=== PATIENT | female | born 1985 | race Caucasian/White ===

== ENCOUNTER 2017-02-07 19:38 | Emergency (ER) | payer OTHER ==
[2017-02-07] MEDS ORDERED: Aluminum Hydroxide/Magnesium Hydroxide Susp (30 mL) PO STA (20:40)
[2017-02-07] MEDS ORDERED: Aluminum Hydroxide/Magnesium Hydroxide Susp (30 mL) ONE (20:48)
--- NOTE | 2017-02-07 20:49 | C.PDOC ---
History Of Present Illness 31 y/o female presents to the ED for evaluation of a sore throat which began last night. Patient states her pain is worse with swallowing and is associated with a dry cough and a subjective, unmeasured fever. Patient is also around 37 weeks and denies any issues related to the such as abdominal pain, contractions, or vaginal bleeding. Patient also denies any other past medical history. Time Seen by Provider: 02/07/17 20:09 Chief Complaint (Nursing): ENT Problem History Per: Patient History/Exam Limitations: None Onset/Duration Of Symptoms: Hrs Current Symptoms Are (Timing): Still Present Quality (Mouth/Throat): Other (+sore throat) Past Medical History Reviewed: Historical Data, Nursing Documentation, Vital Signs Vital Signs: Last Vital Signs Temp 98.1 F 02/07/17 19:46 Pulse 66 02/07/17 19:46 Resp 16 02/07/17 19:46 BP 114/77 02/07/17 19:46 Pulse Ox 98 02/07/17 20:54 - Medical History PMH: No Chronic Diseases Surgical History: No Surg Hx Family History: States: Unknown Family Hx - Social History Hx Alcohol Use: No Hx Substance Use: No Review Of Systems Constitutional: Positive for: Fever (subjective) ENT: Positive for: Throat Pain Cardiovascular: Negative for: Chest Pain Respiratory: Positive for: Cough. Negative for: Sputum Gastrointestinal: Negative for: Nausea, Vomiting, Abdominal Pain, Diarrhea Genitourinary: Negative for: Vaginal Bleeding Neurological: Negative for: Weakness, Numbness Physical Exam - Physical Exam Appears: Non-toxic, No Acute Distress Skin: Normal Color, Warm, Dry Head: Atraumatic, Normacephalic Eye(s): bilateral: Normal Inspection Ear(s): Bilateral: Normal Nose: Normal, No Discharge Oral Mucosa: Moist Throat: Normal, No Erythema, No Exudate, Other (uvula at midline, no swelling ) Neck: Normal ROM, Supple Chest: Symmetrical, No Deformity, No Tenderness Cardiovascular: Rhythm Regular, No Murmur Respiratory: Normal Breath Sounds, No Rales, No Rhonchi, No Wheezing Gastrointestinal/Abdominal: Soft, No Tenderness, No Guarding, No Rebound, Other (+gravid ) Back: Normal Inspection Extremity: Normal ROM, Capillary Refill (less than 2 seconds ) Neurological/Psych: Oriented x3, Normal Speech, Normal Cognition Gait: Steady ED Course And Treatment O2 Sat by Pulse Oximetry: 98 (on RA) Pulse Ox Interpretation: Normal Progress Note: Rapid Strep test ordered and reviewed. Patient received Lidocaine 2% Viscous PO and Maalox PO. Medical Decision Making Medical Decision Making: viral pharyngitis vs gerd pt appears well no distress, vss rec close f/u w OB and pcp, return if worse Disposition - Disposition Disposition: HOME/ ROUTINE Disposition Time: 21:57 Condition: GOOD Forms: [facility] (Scottish) - Clinical Impression Clinical Impression: Sore throat - Scribe Statement The provider has reviewed the documentation as recorded by the Scribe (Giovanna Salter) Provider Attestation: All medical record entries made by the Scribe were at my direction and personally dictated by me. I have reviewed the chart and agree that the record accurately reflects my personal performance of the history, physical exam, medical decision making, and the department course for this patient. I have also personally directed, reviewed, and agree with the discharge instructions and disposition.
[2017-02-07 22:13] VITALS: BP 107/72; PULSE 65; RESP 20; TEMP 98.5; O2SAT 97
== END 2017-02-07 22:09 | disposition home or self-care (01) ==
LOC: C.ER 19:38
DX: J02.9 Acute pharyngitis, unspecified (principal)

== ENCOUNTER 2017-02-10 18:35 | Inpatient (IN) | payer OTHER ==
--- NOTE | 2017-02-10 19:44 | OBHP ---
Datetime: 02/10/2017 19:39 IP Adm Impression: Term, intrauterine ; Active labor IP Admit Plan: Admit to unit; Initiate labor protocol Admit Comment, IP Provider: chief complaint-contractions HPI 31 y/o at 39 weeksa nd 2 days with c/o contarctions.Denies vaginal bleeding or loss of fl uid.Patient denies nausea, vomiting, headache, chest pain, shortness of breath, numbness or tingling in hands andfeet course uncomplicated PMH denies PSH denies OBGYN HX Social hx denies tobacco,alcohol or illicit drug use Exam see exam section A/P 31 y/o at 39.2 wga in labor.GBS unknowns -admit -see orders Dr Salter aware Pelvic Type - PN: Adequate Extremities - PN: Normal Abdomen - PN: Normal Back - PN: Normal Lungs - PN: Normal Heart - PN: Normal Neurologic - PN: Normal General - PN: Normal Weight - Estimated: 3200 Presentation-Admit: Vertex Contraction Comments Provider: every 5 min Gestation - Est Wks by US: 39.2 IP Hx Assessment: The History has been Reviewed and is Current EGA AdmitDate IP: 39.2 Vital Signs Provider: Reviewed; Within Normal Limits IP Chief Complaint: Uterine contractions FHR Category Provider Fetus A: Category I Dilatation, Provider: 3 Effacement, Provider: 70 Station, Provider: -2 Genitourinary Exam: Normal DTRs - PN: Normal
[2017-02-10 19:52] VITALS: BMI 29.3
[2017-02-10] MEDS ORDERED: Penicillin G 5 Million Unit Vial IVPB ONE ×2 (19:55→20:28)
[2017-02-10] MEDS ORDERED: Lactated Ringer's 1,000 ML IV SCH (20:00)
[2017-02-10] MEDS ORDERED: Oxytocin 30 UNIT 30 UNITS/500 ML BAG IV PRN (20:08)
[2017-02-10 20:37] LABS: BASO # 0.1 K/uL (0.0-0.2); BASO % 0.7 % (0.0-2.0); EOS # 0.1 K/uL (0.0-0.7); EOS % 1.1 % (0.0-4.0); HEMATOCRIT 33.4 % (34.0-47.0); LYMPH # 1.9 K/uL (1.0-4.3); LYMPH % 18.4 % (20.0-40.0); MEAN CELL VOLUME 75.9 fL (81.0-99.0); MEAN CORPUSCULAR HGB CONC 32.9 g/dL (33.0-37.0); MEAN PLATELET VOLUME 8.6 fL (7.2-11.7); MONO # 0.9 K/uL (0.0-0.8); MONO % 8.9 % (0.0-10.0); NRBC % 0.1 % (0.0-2.0); RED CELL DISTRIBUTION WIDTH 15.8 % (11.5-14.5); WHITE BLOOD COUNT 10.2 K/uL (4.8-10.8)
[2017-02-10 20:46] LABS: CHLORIDE 106 mmol/L (98-107); SODIUM 134 mmol/L (132-148)
[2017-02-10 20:48] LABS: ALB/GLOB RATIO 1.1 (1.0-2.1); ALKALINE PHOSPHATASE 131 U/L (38-126); AST/SGOT 25 U/L (14-36); BILIRUBIN,TOTAL 0.6 mg/dL (0.2-1.3); CARBON DIOXIDE 21 mmol/L (22-30); GFR AFRICAN-AMERICAN > 60; TOTAL PROTEIN 6.4 g/dL (6.3-8.3)
[2017-02-10 20:49] LABS: ALT/SGPT 29 U/L (9-52); BLOOD UREA NITROGEN 9 mg/dL (7-17); CALCIUM 8.7 mg/dl (8.6-10.4); GLUCOSE,RANDOM 79 mg/dL (65-105)
[2017-02-10 20:59] LABS: URINE BACTERIA RARE (<OCC); URINE BILIRUBIN NEGATIVE (NEGATIVE); URINE BLOOD NEGATIVE (NEGATIVE); URINE COLOR Yellow (YELLOW); URINE GLUCOSE (UA) NORMAL (Normal); URINE KETONE NEGATIVE (NEGATIVE); URINE LEUKOCYTE ESTERASE NEG Leu/uL (Negative); URINE PROTEIN NEGATIVE (NEGATIVE); URINE UROBILINOGEN NORMAL mg/dL (0.2-1.0)
[2017-02-10] MEDS ORDERED: Bupivacaine 0.125%/FentaNYL 200 ML EPI ONE (22:20)
[2017-02-10] MEDS ORDERED: Oxytocin 30 UNIT 30 UNITS/500 ML BAG IV ONE (22:34)
--- NOTE | 2017-02-11 05:22 | OBPN ---
Datetime: 02/11/2017 05:17 IP Procedures: Artificial ROM IP Progress Plan: Continue present management; Anticipate Vaginal Delivery Contraction Comments Provider: every 2min FHR - Baseline A Provider: 160s IP Progress Note Comment: S-patient comfortable with epidural FHT cat2 [place] ctx q 1-2min sve fully/+2 A/P Patient in labor on pit augmentation. -Arom done.clear fluid -monitor tracing closely -start pushing with rectal pressure Dr baker aware Vital Signs Provider: Reviewed NICHD Variability Prov Fetus A: Minimal - Undetectable to <5bpm Dilatation, Provider: 10 Effacement, Provider: 100 Station, Provider: 2 NICHD Decel Fetus A IP Provider: Variable Datetime: 02/10/2017 19:39 Gestation - Est Wks by US: 39.2 Weight - Estimated: 3200 Presentation-Admit: Vertex FHR Category Provider Fetus A: Category I
[2017-02-11] MEDS ORDERED: Oxycodone/Acetaminophen 5/325 mg Tab PO PRN ×2 (06:52)
--- NOTE | 2017-02-11 06:53 | OBDS ---
DELIVERY PERSONNEL Delivery Doctor: Phuong Salter MD Unemployment Insurance Director: Katie Ellison RN Anesthesiologist: Kimo Bowles MD MATERNAL INFORMATION Delivery Anesthesia: Epidural Medications in Delivery: PITOCIN Estimated Blood Loss (ml): 300 Maternal Complications: None RN Comments: LIVE BABY GIRL 9/9 SKIN TO SKIN DONE Provider Comments: pt was fully dilated and pushing. Right mediolateral episiotmy perfomred after ve rbal permission, Atraumatic, sponateus delivye rof head in LILIANE postion, tight nuchal cord x 1 , loose [place]. atrumatic, spontaneous delivery of anerior followed by posteiro shoulder folloewd by delivery of body both oral and nasal passages of the baby were bulb suctioned. umbilical cord was clamped and cu t. Baby handed to mother on abdomen with rn assistance. cord blood and cord gases colleted and sent x 2. Spontaneous delivery of intact placenta with membranes. Fundus firm. Good hemostasis. Right medi olateral episitomy repaired with 2-0 and 3-0 chormic . Goo dhemoasis, no complicaton. ebl 300 ml live femlae ifnat agpars 9.9 weight of 6lbs 1 ounces no complications LABOR SUMMARY EDC: 02/15/2017 00:00 No. Babies in Womb: 1 Attempted: No Labor Anesthesia: Epidural LABOR INFORMATION Reason for Induction: Not Applicable Onset of Labor: 02/10/2017 17:30 Complete Dilatation: 02/11/2017 05:00 Oxytocin: Augmentation Group B Beta Strep: Done, Result Unknown Antibiotics # of Doses: 3 Antibiotics Time of Last Dose: 4: Steroids Given: None Reason Steroids Not Administered: Not Applicable MEMBRANES Membranes Rupture Method: Artificial Rupture of Membranes: 02/11/2017 05:15 Length of Rupture (hrs): 1.15 Amniotic Fluid Color: Clear Amniotic Fluid Amount: Moderate Amniotic Fluid Odor: Normal STAGES OF LABOR Stage 1 hrs: 11 Stage 1 min: 30 Stage 2 hrs: 1 Stage 2 min: 24 Stage 3 hrs: 0 Stage 3 min: 3 Total Time in Labor hrs: 12 Total Time in Labor min: 57 VAGINAL DELIVERY Episiotomy: Right Mediolateral Laceration Extension: N/A Laceration Type: None Laceration Repair: Yes Initial Vag Sponge Count: 10 Final Vag Sponge Count: 20 Initial Vag Sharps Count: 0 Final Vag Sharps Count: 3 Sponge Count Correct: Yes; Vaginal Sweep Performed Sharps Count Correct: Yes BABY A INFORMATION Infant Delivery Date/Time: 02/11/2017 06:24 Method of Delivery: Vaginal Born in Route : No : N/A Forceps: N/A Vacuum Extraction: N/A Shoulder Dystocia : No SHOULDER DYSTOCIA BABY A Infant Delivery Date/Time: 02/11/2017 06:24 PRESENTATION/POSITION BABY A Presentation: Cephalic Cephalic Presentation: Vertex Vertex Position: Left Occipital Anterior Breech Presentation: N/A PLACENTA INFORMATION BABY A Placenta Delivery Time : 02/11/2017 06:27 Placenta Method of Delivery: Spontaneous Placenta Status: Delivered SCORES BABY A Heart Rate 1 min: >100 bpm Resp Effort 1 min: Good Cry Reflex Irritability 1 min: Cough or Sneeze or Pulls Away Muscle Tone 1 min: Active Motion Color 1 min: Body [place], Extremities Blue Resuscitation Effort 1 min: Tactile Stimulation SCORE 1 MIN: 9 Heart Rate 5 min: >100 bpm Resp Effort 5 min: Good Cry Reflex Irritability 5 min: Cough or Sneeze or Pulls Away Muscle Tone 5 min: Active Motion Color 5 min: Body [place], Extremities Blue SCORE 5 MIN: 9 INFANT INFORMATION BABY A Gestational Age at Delivery: 39.3 Gestational Status: Term Infant Outcome : Liveborn Infant Condition : Stable Infant Sex: Female IDENTIFICATION/MEDS BABY A ID Band Number: [id number] ID Band Location: Left Leg; Left Arm Sensor Applied: Yes Sensor Number: [id number] Sensor Location : Cord Clamp WEIGHT/LENGTH BABY A Infant Birthweight (gms): 2745 Weight (lb): 6 Infant Weight (oz): 1 Infant Length Inches: 19.00 Infant Length cms: 48.3 CORD INFORMATION BABY A No. Cord Vessels: 3 Nuchal Cord : Around Neck x1, Tight Cord Blood Taken: Yes Infant Suction: Mouth; Nose ASSESSMENT BABY A Complications: None Physical Findings at Delivery: Within Normal Limits Respirations: Appears Normal [employer] Called : No Care By: ALMAS HARRIS Transferred To: Remains with Mother
--- NOTE | 2017-02-11 06:55 | OBADHP ---
Datetime: 02/11/2017 05:17 FHR - Baseline A Provider: 160s Contraction Comments Provider: every 2min Vital Signs Provider: Reviewed NICHD Variability Prov Fetus A: Minimal - Undetectable to <5bpm NICHD Decel Fetus A IP Provider: Variable Dilatation, Provider: 10 Effacement, Provider: 100 Station, Provider: 2 Datetime: 02/10/2017 19:39 Admit Comment, IP Provider: chief complaint-contractions HPI 31 y/o at 39 weeksa nd 2 days with c/o contarctions.Denies vaginal bleeding or loss of fl uid.Patient denies nausea, vomiting, headache, chest pain, shortness of breath, numbness or tingling in hands andfeet course uncomplicated PMH denies PSH denies OBGYN HX Social hx denies tobacco,alcohol or illicit drug use Exam see exam section A/P 31 y/o at 39.2 wga in labor.GBS unknowns -admit -see orders Dr Salter aware agree iwth above Ayse Salter MD EGA AdmitDate IP: 39.2
[2017-02-11] MEDS: Benzocaine/Menthol 20%-0.5% Topical Spray (60 ml) TOP PRN (14:02)
[2017-02-12] MEDS: Multiple Vitamins Tab PO SCH (09:36)
[2017-02-12] MEDS: Benzocaine/Menthol 20%-0.5% Topical Spray (60 ml) TOP PRN (09:39)
[2017-02-12 09:58] LABS: HEMATOCRIT 32.1 % (34.0-47.0); MEAN CELL VOLUME 77.4 fL (81.0-99.0); MEAN CORPUSCULAR HEMOGLOBIN 24.8 pg (27.0-31.0); MEAN PLATELET VOLUME 8.9 fL (7.2-11.7); RED CELL DISTRIBUTION WIDTH 16.7 % (11.5-14.5); WHITE BLOOD COUNT 11.9 K/uL (4.8-10.8)
--- NOTE | 2017-02-12 12:43 | OBPPN ---
Datetime: 02/12/2017 12:41 PP Pain Prov: Within normal limits PP Nausea Prov: Denies PP Flatus Prov: Yes PP BM Prov: No PP Breasts Prov: Normal PP Heart Prov: Normal PP Lungs Prov: Normal PP Abdomen/Uterus Prov: Normal PP Lochia Prov: Normal PP Vulva/Perineum Prov: Normal PP CVA Tenderness Prov: Normal PP Extremities Prov: Normal PP C/S Incision Prov: Not Applicable PP Progress Prov: Normal PP Impression Prov: Normal progression PP Plan Prov: Continue present management PP Progress Note Prov: pt dong well, no comliaint vss pe see above a/p s/p NSV PPD #1 doign well -cont cumanganet -anticpiate d/c in ma IP PP Procedures: None Vital Signs Provider PP: Reviewed; Within Normal Limits
[2017-02-12 19:18] LABS: RBC URINE 80 /hpf (0-3); URINE BACTERIA RARE (<OCC); URINE BILIRUBIN NEGATIVE (NEGATIVE); URINE BLOOD 2+ (NEGATIVE); URINE COLOR Yellow (YELLOW); URINE GLUCOSE (UA) NORMAL (Normal); URINE KETONE NEGATIVE (NEGATIVE); URINE LEUKOCYTE ESTERASE 1+ Leu/uL (Negative); URINE PROTEIN NEGATIVE (NEGATIVE); URINE UROBILINOGEN NORMAL mg/dL (0.2-1.0); WBC URINE 14 /hpf (0-5)
[2017-02-13 07:29] LABS: BASO % 0.5 % (0.0-2.0); EOS # 0.3 K/uL (0.0-0.7); EOS % 2.6 % (0.0-4.0); LYMPH # 1.8 K/uL (1.0-4.3); LYMPH % 18.9 % (20.0-40.0); MEAN CELL VOLUME 76.7 fL (81.0-99.0); MEAN CORPUSCULAR HEMOGLOBIN 25.1 pg (27.0-31.0); MEAN CORPUSCULAR HGB CONC 32.7 g/dL (33.0-37.0); MEAN PLATELET VOLUME 8.4 fL (7.2-11.7); MONO # 0.7 K/uL (0.0-0.8); MONO % 7.4 % (0.0-10.0); RED CELL DISTRIBUTION WIDTH 16.7 % (11.5-14.5); WHITE BLOOD COUNT 9.7 K/uL (4.8-10.8)
[2017-02-13 07:59] VITALS: BP 108/73; PULSE 66; RESP 18; TEMP 97.1; O2SAT 99
[2017-02-13 08:49] LABS: ALB/GLOB RATIO 0.9 (1.0-2.1); ALKALINE PHOSPHATASE 88 U/L (38-126); ALT/SGPT 27 U/L (9-52); AST/SGOT 28 U/L (14-36); BILIRUBIN,TOTAL 0.3 mg/dL (0.2-1.3); BLOOD UREA NITROGEN 8 mg/dL (7-17); CALCIUM 8.8 mg/dl (8.6-10.4); CARBON DIOXIDE 24 mmol/L (22-30); CHLORIDE 103 mmol/L (98-107); GFR AFRICAN-AMERICAN > 60; GLUCOSE,RANDOM 76 mg/dL (65-105); POTASSIUM 4.1 mmol/L (3.6-5.2); SODIUM 137 mmol/L (132-148); TOTAL PROTEIN 5.6 g/dL (6.3-8.3)
--- NOTE | 2017-02-13 09:08 | OBPPN ---
Datetime: 02/13/2017 09:07 PP Pain Prov: Within normal limits PP Nausea Prov: Denies PP Flatus Prov: Yes PP BM Prov: Yes PP Breasts Prov: Normal PP Heart Prov: Normal PP Lungs Prov: Normal PP Abdomen/Uterus Prov: Normal PP Lochia Prov: Normal PP Vulva/Perineum Prov: Normal PP CVA Tenderness Prov: Normal PP Extremities Prov: Normal PP C/S Incision Prov: Not Applicable PP Progress Prov: Normal PP Impression Prov: Normal progression PP Plan Prov: Discharge IP PP Procedures: None Vital Signs Provider PP: Reviewed; Within Normal Limits Datetime: 02/12/2017 13:21 PP Comments Phys Exam Prov: Fundus slightly below the umbilicus PP Progress Note Prov: Patient was seen and examined at bedside. Patient reports that she is doing w ell and pain is well controlled. Patient is ambulating, tolerating diet, passing flatus. Patient tiara es fever, chills, nausea, vomiting, calf tenderness and BM but admits to pressure with urinating. Cur rently, patient is breast feeding. Vital signs: BP: 96/63, HR: 66, Temp: 97.6 O positive Labs: 10.2>11.0/33.4<226 11.9>10.3/32.1<204 Physical Examination: Gen: AAOx3, NAD Cardio: RRR, Normal S1, S2 Pulm: CTA bilaterally Abdomen: Soft, appropriately tender, fundus below umbilicus Ext: No edema, cyanosis and clubbing, no calf-tenderness A/P: 31 yo at 39weeks 2days S/P PPD#1 1. Stable, Afebrile 2. F/u UA, f/u CBC am tomorrow 3. Pain control: Motrin and percocet PRN 4. Encourage ambulation and hydration 5. Encourage breast feeding 6. Continue routine post- care 7. Plan d/w with attending Melody Rosales DO PGY1-1 5.
--- NOTE | 2017-02-13 09:10 | OBDCSUM ---
Datetime: 02/13/2017 09:07 Discharged to, Provider: Home Follow up at, Provider: Dr Salter Disch Instr Activity: Normal activity Disch Instr Diet: Regular Discharge Instructions, Provider: Routine instructions given Discharge Diagnosis, Provider: Term Delivered Discharge Time: 02/13/2017 11:00 Follow up in weeks, Provider: 6 weeks Disch Referrals: None Contraception discussed, Prov: Yes Disch Activity Restrictions: No sexual activity; Nothing in vagina - [place], tampons, douche Discharge Comment, Provider: precautins given Contraception after Delivery: Undecided
[2017-02-13] MEDS: Multiple Vitamins Tab PO SCH (09:11)
== END 2017-02-13 15:25 | disposition home or self-care (01) | DRG 775 ==
LOC: C.EROB 18:35 → C.4D 19:32 → C.4M 02-11 16:30
PROVIDERS: ADMIT Obstetrics & Gynecology; ATTEND Obstetrics & Gynecology
PROC: 10E0XZZ Delivery of Products of Conception, External Approach (ICD-10-PCS; principal; 2017-02-11)
PROC: 0W8NXZZ Division of Female Perineum, External Approach (ICD-10-PCS; 2017-02-11)
PROC: 10907ZC Drainage of Amniotic Fluid, Therapeutic from Products of Conception, Via Natural or Artificial Opening (ICD-10-PCS; 2017-02-11)
DX: O69.1XX0 Labor and delivery complicated by cord around neck, with compression, not applicable or unspecified (principal); Z37.0 Single live birth; Z3A.39 39 weeks gestation of pregnancy